=== PATIENT | female | born 1945 | race Caucasian/White ===

== ENCOUNTER 2023-04-25 11:45 | Outpatient (RCR) | payer OTHER, SELFPAY ==
--- NOTE | 2023-03-09 13:15 | PT.OPE ---
PT [facility] PT [facility] Eval Start: 03/09/23 11:59 Freq: Status: Active Protocol: Document 03/09/23 12:01 MARIOLA (Rec: 03/09/23 12:53 MARIOLA Desktop) E-signed By Walt Luna, PT, ATC Physical Therapy Outpatient Evaluation Insurance Information Insurance Name Medicare B Insurance Information/Comments [employer] Medical Diagnosis M54.50 low back pain, unspecified M54.6 pain in thoracic spine Treating Diagnosis Low back pain Mid back pain and stiffness Cervical and shoulder pain, stiffness and restricted ROM Referring MD Niall Grace Subjective Maki is a pleasant 78 year old woman referred to PT because of overall back and neck pain. Chronic history of back pain dates back to 1973 when backing into a metal fence post. Symptoms have advanced over the past 1-2 years creating difficulty with most ADL's-transfers, bed mobility, reaching over shoulder height , turning head in while driving. Difficult for her to identify what level of pain she averages, estimates 5/10. Pain location varies from her lower back to mid back yet symptoms are always right sided. Neck, however, effects both sides. No radicular complaint or weakness recognized. Does admit deconditioning. Maximum standing time limited to 5 min .s, walking (without cart) < min.s. Date of Last Physician Visit 03/03/23 Current Work Status Retired Precautions Therapy Limitations/Systems Review Not Limited Objective Range of Motion Trunk: FLEX -25% EXT, ROT and SB'ing -75%, painful at all end ranges. Cervical: EXT-most occurs from suboccipital C1-2 joints ROT and SB'ing -50%. pain with both directions throughout entire available range. Strength UE WFL's bilaterally Palpation Tight and tender throughout both upper shoulder and neck muscles-R and L. L upper trap spasm. Tight and tender in R lumbar and distal thoracic paraspinal muscles. Posture Stands with: -increased lumbar lordosis -increased thoracic kyphosis -forward head -Dowager's Hump -rounded shoulders Assessment Assessment/Impression Maki is a pleasant 78 year old woman referred to PT because of R sided lbp and cervical pain. ROM is restricted in both areas up to 75%. I suspect significant degenerative changes as primary cause for posture, ROM restrictions and her pain. She is limited on her WB'ing time in standing and walking secondary to deconditioning and pain. Subsequent difficulty and compensation required for all ADL's and functional activity. A skilled PT program is recommended and focused on: improved vertebral arthrokinematic motion in the lumbar, thoracic, costovertebral and cervical spine, decreasing muscle tension in the lumbar, TL junction and cervical areas, improving RT-bkd-axbs-core strength and overall endurance . She appears willing to participate with the program. Primary Functional Limitations standing > 5 min walking > 5 min trunk ext after flex sustained flex positions- loading full stack python developer or washing machine Plan of Care Rehabilitation Potential Fair Physical Therapy Goals 1.Independent and correct HEP performance. 2.Decrease neck pain while improving cervical rotation allowing improved ease with turning head in traffic while driving. 3.Decrease LBP permitting improved ease when loading either full stack python developer or washing machine. 4.To stand durations of 10 min . allowing for meal preparation without continued need for sitting down. 5.To walk x 10 min without limitation for back pain. Coordination/Communication With Referral Source Treatment Plan/Direct Interventions Heat,Joint Mobilization,Manual Therapy,Therapeutic Exercises Frequency/Duration 1-2x per week 12 weeks Patient Will Be Discharged From Therapy Independent w/HEP, Independently Progressing Evaluation Billing Untimed Code Treatment Minutes 30 PT Eval No Charge No Complexity Low Certification Information Initial Certification Date 03/09/23 Ending Certification Date 06/08/23 Provider Signature Shows Agreement With POC & Medical Necessity Physician Signature & Date Requested Please Sign/Date Here Physician Comment/Change : Physician NPI Number #
== END 2023-08-23 23:59 | disposition home or self-care (01) ==
PROVIDERS: PCP Family Medicine; Visit Provider Family Medicine
DX: M54.50 Low back pain, unspecified (principal); M54.6 Pain in thoracic spine; M25.519 Pain in unspecified shoulder; M25.60 Stiffness of unspecified joint, not elsewhere classified; M54.2 Cervicalgia; Z51.89 Encounter for other specified aftercare
CPT/HCPCS: 97110; 97140; 97161

== ENCOUNTER 2023-07-04 10:25 | Outpatient (CLI) | payer OTHER, SELFPAY | END 2023-07-04 10:26 | disposition home or self-care (01) | LOC: NFLDREF 07-06 08:59 | PROVIDERS: PCP Family Medicine; Referring Provider Family Medicine; Visit Provider Family Medicine | DX: R30.0 Dysuria (principal); E11.9 Type 2 diabetes mellitus without complications; I10 Essential (primary) hypertension; E78.5 Hyperlipidemia, unspecified | CPT/HCPCS: 87086 ==

== ENCOUNTER 2023-10-13 08:15 | Outpatient (CLI) | payer OTHER, SELFPAY | END 2023-10-13 08:16 | disposition home or self-care (01) | LOC: NFLDREF 10-15 06:50 | PROVIDERS: PCP Family Medicine; Referring Provider Family Medicine; Visit Provider Family Medicine | DX: E11.9 Type 2 diabetes mellitus without complications (principal); E78.5 Hyperlipidemia, unspecified; I10 Essential (primary) hypertension | CPT/HCPCS: 80053; 80061; 82043; 82570 ==

== ENCOUNTER 2024-02-01 09:55 | Outpatient (CLI) | payer OTHER, SELFPAY | END 2024-02-01 09:56 | disposition home or self-care (01) | LOC: LKVREF 09:57 | PROVIDERS: PCP Family Medicine; Visit Provider Family Medicine | DX: R53.83 Other fatigue (principal); E11.9 Type 2 diabetes mellitus without complications | CPT/HCPCS: 84443 ==

== ENCOUNTER 2024-02-08 12:47 | Outpatient (CLI) | payer OTHER, SELFPAY | END 2024-02-08 12:48 | disposition home or self-care (01) | LOC: RAD 12:49 | PROVIDERS: PCP Family Medicine; Visit Provider Family Medicine | DX: R01.1 Cardiac murmur, unspecified; I35.0 Nonrheumatic aortic (valve) stenosis; I35.1 Nonrheumatic aortic (valve) insufficiency; I34.0 Nonrheumatic mitral (valve) insufficiency | CPT/HCPCS: 93306 ==

== ENCOUNTER 2024-09-26 08:09 | Outpatient (CLI) | payer OTHER, SELFPAY ==
--- OUTSIDE RECORDS SUMMARY | 2024-09-30 11:48 | XMS_ITS | Referral Summary ---
Author Organization [facility] Address [address] [place] [id number] Care Team Providers Care Bench Assembler Electrical Name Role Phone Jason Birch MD Primary Care Provider [phone] Allergies No known active allergies Medications FREESTYLE LITE TEST STRPIndications: Type II or unspecified type diabetes mellitus without mention of complication, not stated as uncontrolled Use as directed up to 4 times daily 100 Strip 10 0 Active FREESTYLE LANCETS MISCIndications: Type II or unspecified type diabetes mellitus without mention of complication, not stated as uncontrolled 28 gauge-use as directed up to 4 times daily 100 Each 10 0 Active meloxicam (MOBIC) 15 MG tabletIndication s:OA (osteoarthritis) Take 1 tablet by mouth daily. 90 tablet 2 0 Active Additional Information Patient not taking.Reported on 11/09/2018 aspirin 81 MG tabletIndication s:Type 2 diabetes, HbA1c goal < 7% (H),CARDIOVASCUL AR SCREENING; LDL GOAL LESS THAN 100 Take 1 tablet by mouth daily. 100 tablet 3 0 Active Additional Information Patient not taking.Reported on 11/09/2018 estradiol (ESTRACE) 2 MG tabletIndication s:Routine medical exam Take 1 tablet by mouth daily. 90 tablet APPT 1 Active Additional Information Patient not taking.Reported on 11/09/2018 glyBURIDE (DIABETA / MICRONASE) 2.5 MG tabletIndication s:Type 2 diabetes, HbA1c goal < 7% (H) Take 1 tablet by mouth 2 times daily. 180 tablet 1 1 Active Additional Information Patient not taking.Reported on 11/09/2018 meloxicam (MOBIC) 15 MG tabletIndication s:OA (osteoarthritis) Take 1 tablet by mouth daily. 90 tablet 1 1 Active Additional Information Patient not taking.Reported on 11/09/2018 amLODIPine (NORVASC) 5 MG tablet Take 5 mg by mouth daily 5 8 Active glipiZIDE (GLUCOTROL) 10 MG tablet 8 Active NOVOLIN MIX 70/30 VIAL (70-30) 100 UNIT/ML susp INJECT 72-74 UNITS UNDER SKIN TWICE A DAY 0 8 Active BD VEO INSULIN SYRINGE U/F 31G X 1 ML 8 Active Active Problems Problem Noted Date Diagnosed Date OA (osteoarthritis) 10/11/2010 Lipoma of skin and subcutaneous tissue 0 TYPE 2 DIABETES, HBA1C GOAL < 7% 09/19/2010 CARDIOVASCULAR SCREENING; LDL GOAL LESS THAN 100 09/19/2010 Resolved Problems Problem Noted Date Diagnosed Date Resolved Date Diabetes mellitus, type 2 01/26/2009 Overview (08/21/2015): Problem list name updated by automated process. 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 DESIGNER Gender Identity Not on file Sexual Orientation Not on file Last Filed Vital Signs Vital Sign Reading Time Taken Comments Blood Pressure 132/72 11/19/2018 8:55 AM FREELANCE DESIGNER Pulse 82 10/11/2010 8:44 AM FREELANCE DESIGNER Temperature 36.5 ??C (97.7 ??F) 10/11/2010 8:44 AM CS T Respiratory Rate 20 10/11/2010 8:44 AM FREELANCE DESIGNER Oxygen Saturation 95% 10/11/2010 8:44 AM FREELANCE DESIGNER Inhaled Oxygen Concentration - - Weight 85.4 kg (188 lb 3.2 oz) 11/19/2018 8:55 A M FREELANCE DESIGNER Height 160 cm (5' 3) 11/19/2018 8:55 AM FREELANCE DESIGNER Body Mass Index 33.34 11/19/2018 8:55 AM FREELANCE DESIGNER Plan of Treatment Not on file Insurance [facility] MEDICARE ADVANTAGE MEDICARE Care Teams Bench Assembler Electrical Relationship Specialty Start Date End Date Jason Birch MD [address] [address] PCP - General Family Practice 07/12/10
--- OUTSIDE RECORDS SUMMARY | 2024-09-30 11:48 | XMS_ITS | Clinical Summary ---
Author Organization [facility] Address [address] [place] [id number] Care Team Providers Care Outpatient Dietitian Name Role Phone Jason Birch MD Primary Care Provider [phone] Allergies No known active allergies Medications FREESTYLE [...] updated by automated process. 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 Gender Identity Not on file Sexual Orientation Not on file Last Filed Vital Signs Vital Sign Reading Time Taken Comments Blood Pressure 132/72 11/19/2018 8:55 AM KOHINOOR OPERATOR Pulse 82 10/11/2010 8:44 AM KOHINOOR OPERATOR Temperature 36.5 ??C (97.7 ??F) 10/11/2010 8:44 AM CS T Respiratory Rate 20 10/11/2010 8:44 AM KOHINOOR OPERATOR Oxygen Saturation 95% 10/11/2010 8:44 AM KOHINOOR OPERATOR Inhaled Oxygen Concentration - - Weight 85.4 kg (188 lb 3.2 oz) 11/19/2018 8:55 A M KOHINOOR OPERATOR Height 160 cm (5' 3) 11/19/2018 8:55 AM KOHINOOR OPERATOR Body Mass Index 33.34 11/19/2018 8:55 AM KOHINOOR OPERATOR Plan of Treatment Not on file Insurance [facility] MEDICARE ADVANTAGE MEDICARE Care Teams Outpatient Dietitian Relationship Specialty Start Date End Date Jason Birch MD [address] [address] PCP - General Family Practice 07/12/10
--- OUTSIDE RECORDS SUMMARY | 2024-09-30 11:48 | XMS_ITS | Clinical Summary ---
Author Organization [facility] Address [place], [place] [address] Care Team Providers Care Nurse Care Manager Name Role Phone Conrad Brandt MD Primary Care Provider [phone] Allergies Active Allergy Reactions Criticality Noted Date Comments Unlisted Allergen (Include Detail In Comments) 05/09/2011 Cat gut suture does not absorb. Medications Medication Sig Dispensed Refills Start Date End Date Status ESTRADIOL 2 MG TABIndications:Symptoma tic menopausal or female climacteric states take 1 tablet (2mg) by oral route once daily 90 1 11/10/2008 Active glyBURIDE (MICRONASE; DIABETA) 2.5 mg tablet Take 2.5 mg by mouth 2 times daily before meals. 05/09/2011 Active HYDROCODONE BIT/ACETAMINOPHEN (VICODIN ORAL) Take by mouth. No dose listed: take by mouth as needed. Active Active Problems Problem Noted Date Diagnosed Date Type II or unspecified type diabetes mellitus without mention of complication, not stated as uncontrolled 05/11/2006 Symptomatic menopausal or female climacteric sta mark 04/26/2006 Overview (04/26/2006): post menopausal Social History Tobacco Use Types Packs/Day Years Used Date Smoking Tobacco: Former Cigarettes Q uit: 12/03/2007 Alcohol Use Standard Drinks/Week Comments Yes 0 (1 standard drink = 0.6 oz pur e alcohol) occ Social Connections Answer Date Recorded Frequency of Communication with Friends and Fami ly Not on file 03/13/2022 Sex and Gender Information Value Date Recorded Sex Assigned at Not on file Gender Identity Not on file Sexual Orientation Not on file Obstetrics History Last Filed Vital Signs Vital Sign Reading Time Taken Comments Blood Pressure 144/61 05/10/2011 2:15 PM CDT Pulse 74 05/10/2011 2:15 PM CDT Temperature 36 ??C (96.8 ??F) 05/10/2011 2:15 PM CDT Respiratory Rate 16 05/10/2011 2:15 PM CDT Oxygen Saturation 92% 05/10/2011 2:15 PM CDT Inhaled Oxygen Concentration - - Weight 72.7 kg (160 lb 4.4 oz) 05/10/2011 11:59 AM CDT Height 158 cm (5' 2.21) 05/10/2011 11:59 AM CDT Body Mass Index 29.12 05/10/2011 11:59 AM CDT Plan of Treatment Health Maintenance Due Date Last Done Comments Pneumococcal series for age 65+ (1 of 2 - PCV) 01/20/1950 Tdap 01/20/1955 Depression screening for age 12+ 1956 BMI (ht and wt on same day) for age 18+ 01/20/1962 Tetanus booster 1964 Zoster (shingles) series for age 50+ (1 of 2) 01/20/1994 DEXA/DXA scan for age 65+ 01/20/2009 Medicare Wellness for age 65+ 01/20/2009 RSV vaccine for adults or (1 - 1-dose 75+ series) 01/20/2019 COVID-19 vaccine series ( season) 2024 09/08/2023, 09/08/2022, 04/11/2022, Additional history exists Influenza for age 65+ 07/21/2024 Advance Directives * Full Code (Latest Code Status on File) Date Activated Date Inactivated Comments 05/10/2011 11:16 AM 05/10/2011 5:16 PM Care Teams Nurse Care Manager Relationship Specialty Start Date End Date Conrad Brandt MD [address] [place] [id number] PCP - General Family Practice 02/17/22
== END 2024-09-26 08:10 | disposition home or self-care (01) ==
LOC: NFLDREF 09-30 11:46
PROVIDERS: PCP Family Medicine; Referring Provider Family Medicine; Visit Provider Family Medicine
DX: E11.9 Type 2 diabetes mellitus without complications (principal); E78.5 Hyperlipidemia, unspecified; I10 Essential (primary) hypertension
CPT/HCPCS: 80053; 80061; 82043; 82570